=== PATIENT | male | born 1950 | race Caucasian/White ===

== ENCOUNTER 2020-08-18 16:08 | Emergency (ER) | payer MEDICARE, BC, SELFPAY ==
[2020-08-18] VITALS (9 sets, daily range): BP systolic 82–100; BP diastolic 40–76; PULSE 92–105; RESP 15–24; TEMP 36.4–36.5; O2SAT 89–98; BMI 24.2; BMI 24.3
--- NOTE | 2020-08-18 16:34 | EKG12_ITS ---
Test Reason : SOB Blood Pressure : / mmHG Vent. Rate : 090 BPM Atrial Rate : 090 BPM P-R Int : 164 ms QRS Dur : 088 ms QT Int : 344 ms P-R-T Axes : 065 -06 051 degrees QTc Int : 420 ms Normal sinus rhythm Low voltage QRS Borderline ECG Confirmed by VICTOR HUGO GRUBER, SUMAYA ([id number]), writer editor CHRISTIANA SUNG ([id number]) on 08/19/2020 12:54:54 PM Referred By: EMERITA Confirmed By:SUMAYA GAY MD
--- NOTE | 2020-08-18 16:35 | ED.DCSUM_ITS ---
- ER Visit Summary Date of Service: 08/18/20 Chief Complaint: Shortness of breath and generalized weakness [] History of Present Illness: The patient is a 70 M [presents to the emergency department with complaint of generalized weakness. He presents via EMS. He gives me some information but he is somewhat of a poor historian and asked me to speak with his who is still at home therefore I did discuss case with her and she was able to give some of the information. Patient recently diagnosed with a lung mass by his PCP and is had a MRI of his brain which showed a lesion on his brain. Patient also had a lesion noted on his lumbar spine. He is scheduled to have a PET scan. He has not seen a java technical manager or oncologist yet. Patient was sent in today because of just generalized weakness and inability to stand at this time. Has not had any fever or recent illness. states he cannot keep anything down and is throwing up water.] Physical Examination: [HEENT-PERRLA, EOMI. Cranial nerves II through XII grossly intact. TMs clear. Mucous membranes lightly dry. No adenopathy. Cardiovascular-regular rate and rhythm without murmur or ectopy Lungs-good aeration on the right side and diminished breath sounds on the left. No significant tachypnea. No accessory muscle use or retractions. Abdomen-normoactive bowel sounds, soft, nontender, no rebound or rigidity, no peritoneal signs. Extremities-intact ?4, normal range of motion, normal pulses, atraumatic] Test Results: [EKG obtained arrival showed a sinus rhythm with a ventricular rate of 90 bpm with low voltage noted. CBC with differential showed organ of 12.4, hemoglobin 10.7, hematocrit 33, platelets 875. Chemistry showed a sodium 124, potassium 5.8, chloride 93, CO2 19, glucose 103, BUN 66, creatinine 1.8. Troponin less than 0.015. D-dimer was 5.74. CT a of the chest ordered showed left upper lobe mass with left main bronchus obstruction and a large complex pericardial effusion which could be possibly hemorrhagic. Patient also noted to have a large left pleural effusion likely malignant.] Emergency Department Course and Treatment: [IV line established on arrival. Patient had an episode of hypotension where systolic dropped into the 80s and he received a liter mostly fluid bolus. Blood pressure improved to systolic of 100. Case was discussed with hospitalist who recommended transfer to tertiary care center. I discussed case with [facility] who asked that I discussed with [facility] as they were running tight on ICU beds. ICU beds were not available at [facility] and discussed with clinic again who accepted transfer of patient to their MICU however I was asked to admit the patient here until a bed became available. I discussed with hospitalist here Dr. Marion Ferrer who discussed case with patient's and at this point they want to be transferred to [facility] in [place]. I discussed with [facility] transfer line and patient was accepted to their facility.] Patient's hyperkalemia initially not treated as he did not have hyperkalemic changes on EKG. Treatment Plan: [Transfer to [facility].] Disposition: [Answer] Impression: [Left lung mass Left pleural effusion Pericardial effusion Hyponatremia Acute kidney injury Hyperkalemia] This note was generated with [employer] dictation software. It may contain incorrect words, spelling, and punctuation that were not noted in review of the chart prior to signing ED Disposition - Plan for ED Patient: Referrals: Reggie Soto MD [Primary Care Provider] -
[2020-08-18] MEDS: 0.9% Normal Saline 1,000 ML 150 ML IV (16:51)
[2020-08-18 16:58] LABS: Absolute Lymphocyte Count 0.89 X10^3/uL (0.83-4.51); Absolute Neutrophil Count 10.5 X10^3/uL (2.0-7.7); Basophil# 0.05 X10^3/uL; Basophil% 0.4 % (0-1); Eosinophil# 0.07 X10^3/uL; Eosinophils% 0.6 % (0-5); Hematocrit 33.2 % (40-54); Hemoglobin 10.7 g/dL (13.0-16.5); Lymphocyte # 0.89 X10^3/ul (4.0); Lymphocyte % 7.2 % (19-41); Mean Corp Hgb Conc 32.2 g/dL (32-36); Mean Corpuscular Hgb 27.7 pg (27.0-32.0); Mean Platelet Vol. 8.4 fl (6.2-12.0); Monocyte% 7.2 % (0-10); NRBC Flagged by Analyzer 0 % (0-5); Neutrophil # 10.47 X10^3/uL (2.7-7.7); Neutrophil % 84.1 % (47-70); POSITIVE COUNT YES; Red Blood Count 3.86 M/mm3 (4.6-6.2); White Blood Count 12.4 K/mm3 (4.4-11.0)
[2020-08-18 17:00] LABS: Differential Indicated SCAN CRITERIA MET
[2020-08-18 17:01] LABS: Platelet Count 875 K/mm3 (150-450)
[2020-08-18] MEDS: 0.9% Normal Saline 1,000 ML 999 ML IV (17:06)
[2020-08-18 17:15] LABS: ALB/GLOB Ratio 0.5 RATIO (0.9-2.4); AST(SGOT) 28 U/L (15-37); Alanine Aminotransfer ALT/SGPT 21 U/L (16-61); Albumin, Serum 2.6 g/dL (3.2-5.0); Alkaline Phosphatase 82 U/L (45-117); Anion Gap 12 (5-15); BUN 66 mg/dL (7-18); BUN/Creat Ratio 36.5 RATIO (10-20); Calcium,Total 9.6 mg/dL (8.5-10.1); Chloride 93 mmol/L (98-107); Creatinine, Serum 1.81 mg/dL (0.70-1.30); D-Dimer Quantitative (DVT/PE) 5.74 FEU/ug/m (0.27-0.49); EST Glomerular Filtration Rate 40 mL/min (>60); Est Glom Filt Rate - Afr Amer 48 mL/min (>60); Estimated Creatinine Clearance 39.06 ml/min; Globulin 5.4 g/dL (2.2-4.2); Glucose 103 mg/dL (74-106); Potassium 5.8 mmol/L (3.5-5.1); Sodium Level 124 mmol/L (136-145)
[2020-08-18 17:17] LABS: Lactic Acid 1.2 mmol/L (0.4-1.9)
--- NOTE | 2020-08-18 17:18 | CT_ITS ---
We are attempting to reach an attending provider to discuss findings. An addendum with communication details will be sent when the communication is complete. STUDY: CTA CHEST REASON FOR EXAM: Male, 70 years old. dyspnea RADIATION DOSAGE (If Supplied By Facility): CTDIvol = ( 8.7 ) mGy, DLP = ( 543.57 ) mGycm TECHNIQUE: The examination was performed with the intravenous administration of IV 100mL Isovue-370. Post-processing of the angiographic images was performed, with multiplanar reformation and 3D reconstruction. Individualized dose optimization techniques were used for this CT. COMPARISON: 08/10/2012. FINDINGS: Large pericardial effusion with CT density of 35 Hounsfield units. Heart size is normal. No mediastinal mass or adenopathy. The aorta is normal in caliber. No aneurysm or dissection. No demonstrated pulmonary embolus. There is occlusion of the left mainstem bronchus. Moderate left pleural effusion. Small right pleural effusion. There is a large left upper lobe/hilar mass with encasement of left upper lobe arteries. Residual aerated lung is noted in the left lung apex. There is left lower lobe obstructive atelectasis. Visualized abdomen is unremarkable. Destruction of the right posterolateral 10th rib with associated soft tissue mass. There is early destructive change of the right posterolateral eighth rib. Lucent lesion in the L1 vertebral body. CT/CTA Chest W/WO Contrast IMPRESSION: 1. Left mainstem bronchus obstruction with large left upper lobe mass, malignant until proven otherwise. This is accessible to bronchoscopic or percutaneous biopsy. 2. Large complex pericardial effusion, possibly malignant or hemorrhagic. 3. L1 and right rib bone metastases. 4. No pulmonary embolism or arterial dissection. Electronically Signed: Evonne Urbano MD at 18:22 EST Tel , Service support ,
[2020-08-18 17:37] LABS: Differential Comment SCANNED; Platelet Estimate MKD INC (ADEQ)
[2020-08-19] VITALS: BP 96/66; PULSE 97; RESP 21; O2SAT 97
[2020-08-19 00:37] VITALS: BP 96/66; PULSE 106; RESP 18; O2SAT 97
--- NOTE | 2020-08-19 00:47 | ED.RN ---
CALLED [facility] AT [phone] TO TRANSPORT PATIENT TO [place], THEY SAID IT WOULD BE 4 HOURS FOR A RIDE. [id number] THEY CALLED AGAIN TO SAY IT WOULD BE ANOTHER 2 HOUR WAIT FOR THE TRANSFER
[2020-08-19 01:00] VITALS: BP 91/56; PULSE 98; RESP 20; O2SAT 96
[2020-08-19 02:23] VITALS: BP 91/56; PULSE 94; RESP 16; O2SAT 94
[2020-08-19] MEDS: fentaNYL 100 MCG/2 ML Ampul 25 MCG IV (02:25)
[2020-08-19 12:56] LABS: Pathologist Review Reviewed
== END 2020-08-19 03:25 | disposition short-term general hospital (02) ==
LOC: ED 16:51
PROVIDERS: Emergency Provider Emergency Medicine; PCP Family Medicine
DX: R91.8 Other nonspecific abnormal finding of lung field (principal); J90 Pleural effusion, not elsewhere classified; I31.3 Pericardial effusion (noninflammatory); N17.9 Acute kidney failure, unspecified; E87.1 Hypo-osmolality and hyponatremia; E87.5 Hyperkalemia; I10 Essential (primary) hypertension; Z72.0 Tobacco use; Z79.899 Other long term (current) drug therapy
CPT/HCPCS: 71275; 80053; 83605; 84484; 85025; 85379; 87040; 87426; 93005; 96361; 96374; 99285; J7030; J7040; Q9967; A4216